=== PATIENT | male | born 1995 | race Caucasian/White ===

== ENCOUNTER → 2017-07-12 | Emergency (ER) | payer OTHER ==
[~2017-07-12] VITALS: Ht 170.2 cm; Wt 111.1 kg
== END | disposition home or self-care (01) ==
LOC: ER 20:16
DX: T78.1XXA Other adverse food reactions, not elsewhere classified, initial encounter (principal); R06.02 Shortness of breath; X58.XXXA Exposure to other specified factors, initial encounter

== ENCOUNTER → 2024-08-03 | Outpatient (CLI) | payer OTHER | END | disposition home or self-care (01) | LOC: SONOGRAMA 14:56 | PROVIDERS: ATTEND Specialist | DX: R22.9 Localized swelling, mass and lump, unspecified (principal) ==

== ENCOUNTER 2024-08-10 15:46 | Outpatient (CLI) | payer OTHER | END 2024-08-10 15:49 | disposition home or self-care (01) | LOC: SONOGRAMA 15:46 | PROVIDERS: ATTEND Pathology Anatomic Pathology & Clinical Pathology | DX: R22.0 Localized swelling, mass and lump, head (principal) ==